=== PATIENT | male | born 1970 | race Hispanic/Latino ===

== ENCOUNTER 2018-06-13 14:05 | Inpatient (IN) | payer MEDICAID, OTHER ==
--- NOTE | 2018-06-13 15:24 | C.PDOC ---
History Of Present Illness Patient is a 47 year old male, with PMHx of depression, who presents to the ED requesting heroin detox. Patient notes associated nausea, vomiting, and abdomen discomfort. He states that he has used methadone in the past. Patient denies SI/HI, hallucinations, CP, SOB, falls, trauma, or any other medical complaints at the moment. Time Seen by Provider: 06/13/18 14:41 Chief Complaint (Nursing): Substance Abuse History Per: Patient History/Exam Limitations: no limitations Onset/Duration Of Symptoms: Hrs Current Symptoms Are (Timing): Still Present Modifying Factor(s): Other (Heroin ) Associated Symptoms: Depression Involuntary Hold By: None Recent travel outside of the [place]: No Additional History Per: Patient Past Medical History Reviewed: Historical Data, Nursing Documentation, Vital Signs Vital Signs: Last Vital Signs Temp 98.1 F 06/13/18 15:12 Pulse 71 06/13/18 15:12 Resp 18 06/13/18 15:12 BP 120/81 06/13/18 15:12 Pulse Ox 100 06/13/18 15:12 - Medical History PMH: Depression Surgical History: No Surg Hx Family History: States: Unknown Family Hx - Social History Hx Alcohol Use: No Hx Substance Use: Yes Review Of Systems Cardiovascular: Negative for: Chest Pain Respiratory: Negative for: Shortness of Breath Gastrointestinal: Positive for: Nausea, Vomiting, Other (abdomen discomfort ) Psych: Positive for: Depression. Negative for: Suicidal ideation, Other (homicidal ideation) Physical Exam - Physical Exam Appears: Non-toxic, No Acute Distress Skin: Normal Color, Warm, Dry Head: Atraumatic, Normacephalic Oral Mucosa: Moist Neck: Normal ROM, Supple Chest: Symmetrical Cardiovascular: Rhythm Regular Respiratory: Normal Breath Sounds, No Rales, No Rhonchi, No Wheezing Gastrointestinal/Abdominal: Soft, No Tenderness Neurological/Psych: Oriented x3 ED Course And Treatment - Laboratory Results Result Diagrams: 06/13/18 15:46 06/13/18 15:46 O2 Sat by Pulse Oximetry: 100 (on RA) Pulse Ox Interpretation: Normal Medical Decision Making Medical Decision Makin47 y/o male presents to ED for heroin detox with associated nausea, vomiting, and abdomen discomfort. Patient has no SI/HI, hallucinations, falls, trauma, or medical complaints at the moment. 4mg zofran odt given for nausea. 0.1mg clonidine po given for withdrawal symptoms. Patient medically cleared and admitted to detox. Disposition - Disposition Disposition: HOSPITALIZED Disposition Time: 14:41 Condition: STABLE - Clinical Impression Clinical Impression: Heroin abuse - Scribe Statement The provider has reviewed the documentation as recorded by the Scribe Provider Attestation: Sheyla Santiago All medical record entries made by the Scribe were at my direction and personally dictated by me. I have reviewed the chart and agree that the record accurately reflects my personal performance of the history, physical exam, medical decision making, and the department course for this patient. I have also personally directed, reviewed, and agree with the discharge instructions and disposition.
[2018-06-13 15:50] LABS: BASO # 0.1 K/uL (0.0-0.2); BASO % 0.7 % (0.0-2.0); EOS # 0.3 K/uL (0.0-0.7); HEMOGLOBIN 15.8 g/dL (12.0-18.0); LYMPH # 3.6 K/uL (1.0-4.3); LYMPH % 26.7 % (20.0-40.0); MEAN CELL VOLUME 91.9 fL (80.0-94.0); MEAN CORPUSCULAR HEMOGLOBIN 30.8 pg (27.0-31.0); MEAN CORPUSCULAR HGB CONC 33.6 g/dL (33.0-37.0); MEAN PLATELET VOLUME 7.4 fL (7.2-11.7); MONO # 0.9 K/uL (0.0-0.8); MONO % 6.7 % (0.0-10.0); NEUT # 8.6 K/uL (1.8-7.0); NEUT % 63.9 % (50.0-75.0); NRBC % 0.1 % (0.0-2.0); RBC 5.12 Mil/uL (4.40-5.90); RED CELL DISTRIBUTION WIDTH 15.4 % (11.5-14.5); WHITE BLOOD COUNT 13.4 K/uL (4.8-10.8)
[2018-06-13 16:06] LABS: ALB/GLOB RATIO 1.6 (1.0-2.1); ALBUMIN 4.9 g/dL (3.5-5.0); ALT/SGPT 33 U/L (21-72); AST/SGOT 22 U/L (17-59); BLOOD UREA NITROGEN 9 mg/dL (9-20); CALCIUM 9.6 mg/dl (8.6-10.4); GFR NON-AFRICAN AMERICAN > 60
[2018-06-13 16:09] LABS: BARBITURATES, UR NEGATIVE (NEGATIVE); BENZODIAZEPINES, UR NEGATIVE (NEGATIVE); PHENCYCLIDINE, UR NEGATIVE (NEGATIVE)
[2018-06-13 16:10] LABS: URINE BILIRUBIN NEGATIVE (NEGATIVE); URINE BLOOD NEGATIVE (NEGATIVE); URINE CLARITY Clear (Clear); URINE COLOR Yellow (YELLOW); URINE GLUCOSE (UA) NORMAL (Normal); URINE LEUKOCYTE ESTERASE NEG Leu/uL (Negative); URINE PROTEIN NEGATIVE (NEGATIVE); URINE UROBILINOGEN NORMAL mg/dL (0.2-1.0)
[2018-06-13 16:16] LABS: OPIATES, UR POSITIVE (NEGATIVE)
[2018-06-13] MEDS ORDERED: Aluminum Hydroxide/Magnesium Hydroxide Susp (30 mL) PO PRN (17:32)
--- NOTE | 2018-06-13 22:38 | PCM.BM ---
<Merlyn Karimi F - Last Filed: 06/13/18 22:36> Treatment Plan Problems - Problems identified on initial assessmt denial Date Initiated: 06/13/18 Time Initiated: 22:36 Assessment reference: NA Status: Active defensive coping Date Initiated: 06/13/18 Time Initiated: 22:37 Assessment reference: NA Status: Active low motivation to change Date Initiated: 06/13/18 Time Initiated: 22:37 Assessment reference: NA Status: Active Treatment assets and liabiliti Patient Assests: adapts well, cooperative, ADL independent, cognitively intact Patient Liabilities: substance abuse (Opiates) - Milieu Protocol Maintain good personal hygiene: daily Encourage regular showers, daily Remind patient to perform daily oral care, daily Assist patient to perform ADL's Conduct patient checks and document Observation sheet: Q15 minutes Maintain personal safety: every shift Educate patient to report safety concerns to staff, every shift Monitor environment for contraband/sharps Medication safety: Monitor for expected outcome, potential side effects: every shift, Assess barriers to learning: every shift, Assess readiness for medication education: every shift <David Traylor M - Last Filed: 06/14/18 22:21> - Diagnosis (1) Opioid use disorder, severe, dependence Status: Acute Interventions: 06/14/18 22:21 * Assess 7x/week regarding severity of withdrawal * Educate regarding risks, benefits, side effects and alternatives of medications * Use Motivational Interviewing for abstinence * Use CBT for relapse prevention * Medication management for withdrawal symptoms * Encourage medication assisted vanessa <Elma Garibay - Last Filed: 06/17/18 13:03> Family Contact Family involvement: No known Family/SO - Goals for Treatment Patient goals for treatment: Complete detox and discuss aftercare options with counseling staff. Discharge/Continuing Care - Education Needs Education Needs: Patient Medication, Patient Diagnosis/Disease Process, Patient Coping Skills, Patient Anger Management skills, Patient Placement options, Patient Community resources - Discharge Discharge Criteria: Free of agitation, No longer exhibiting s/s of withdrawal, Reduction of target symptoms Discharge to:: Other - Additional Comments 06/17/18 13:02 Pt. is undecided about aftercare as of this writing but counseling staff will continue to explore options with Pt. - Treatment Team Participation Patient/Family/SO Statement: 06/17/18 13:03 "Yeah...I don't know what I wanna do..." Discussed with Family/SO: No Was Patient/Family/SO present at Treatment Team Meeting: Yes
[2018-06-14] MEDS: buPROPion 150 mg/24 Hours XL Tab PO SCH (12:08)
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
[2018-06-15] MEDS: buPROPion 150 mg/24 Hours XL Tab PO SCH (09:04)
[2018-06-16] MEDS: buPROPion 150 mg/24 Hours XL Tab PO SCH (09:18)
--- NOTE | 2018-06-16 13:35 | PCM.PYCHPN ---
Psychiatric Progress Note - Psychiatric Progress Note Patient seen today, length of contact: 17 min Patient Chief Complaint: "I'm still sick" Problems Identified/Issues Discussed: The pt is seen, chart reviewed, case discussed with staff. The pt is compliant with medications and reports no side-effects. Symptoms are improving but needs more time to stabilize. He is STILL withdrawing and has pain, chills, irritability and anxiety. He got 10 yesterday and it did NOT hold him as per nurses and the pt Will give 10+5 today, 5+5 tomorrow and 5 on Sat and d/c Pt attends groups and activities. Support given, psycho-education provided. After care discussed. He may need to go to [facility] here but he says his insurance is not active and also he is not sure - he even used when he was on 130 mg He will consider LT rehab and maybe Vivitrol after that Medication Change: Yes (detox adjusted) Medical Record Reviewed: Yes Mental Status Examination - Cognitive Function Orientation: Person, Place, Situation, Time Memory: Intact Attention: WNL Concentration: Poor Association: WNL Fund of Knowledge: WNL - Mood Mood: Depressed - Affect Affect: Constricted, Depressed - Speech Speech: Appropriate - Formal Thought Process Formal Thought Process: No Impairment - Suicidal Ideation Suicidal Ideation: No - Homicidal Ideation Homicidal Ideation: No Goal/Treatment Plan - Goal/Treatment Plan Need for Continued Stay: Discharge may exacerbated symptoms, Severe functional impairment Progress Toward Problem(s) and Goals/Treatment Plan: Continue medications as needed meds Detox adjusted Support and psychoeducation daily Attend groups and activities daily [place] and CBT daily After care planning by
[2018-06-17] MEDS: buPROPion 150 mg/24 Hours XL Tab PO SCH (09:09)
--- NOTE | 2018-06-17 13:29 | PCM.PYCHPN ---
Psychiatric Progress Note - Psychiatric Progress Note Patient seen today, length of contact: 16 min Patient Chief Complaint: "I'm worse" Problems Identified/Issues Discussed: The pt is seen, chart reviewed, case discussed with staff. Support and psychoeducation given, CBT and PR used briefly He doesn't look bad but he claims he is worse and that he couldn't tolerate below 15 mg so far. he is now more seriously considering methadone main. vs vivitrol No SEs from medications, risks discussed. After care discussed Medication Change: Yes (detox adjusted) Medical Record Reviewed: Yes Mental Status Examination - Cognitive Function Orientation: Person, Place, Situation, Time Memory: Intact Attention: WNL Concentration: Poor Association: WNL Fund of Knowledge: WNL - Mood Mood: Depressed - Affect Affect: Constricted, Depressed - Speech Speech: Appropriate - Formal Thought Process Formal Thought Process: No Impairment - Suicidal Ideation Suicidal Ideation: No - Homicidal Ideation Homicidal Ideation: No Goal/Treatment Plan - Goal/Treatment Plan Need for Continued Stay: Discharge may exacerbated symptoms, Severe functional impairment Progress Toward Problem(s) and Goals/Treatment Plan: Continue medications as needed meds Detox adjusted Support and psychoeducation daily Attend groups and activities daily [place] and CBT daily After care planning by counselors
[2018-06-17] MEDS: guaiFENesin 200 mg/10 ml Syrup UD PO PRN ×2 (14:27→21:51)
[2018-06-18 05:50] VITALS: RESP 18
--- NOTE | 2018-06-18 08:46 | PCM.PYCHDC ---
Mental Status Examination - Mental Status Examination Orientation: Person, Place, Situation, Time Memory: Intact Mood: Anxious Affect: Constricted Speech: Appropriate Attention: WNL Concentration: Poor Association: WNL Fund of Knowledge: WNL Formal Thought Process: No Impairment Suicidal Ideation: No Current Homicidal Ideation?: No Discharge Summary - Discharge Note Reason for Hospitalization: Opioid detox Consultations:: List each consultation separately and include: 1. Reason for request. 2. Findings. 3. Follow-up Summary of Hospital Course include:: 1. Description of specific treatment plan utilized for patients during their course of treatmen. 2. Summarize the time- course for resolution of acute symptoms and/or regressed behaviors. 3. Describe issues identified and worked on during hospitalization. 4. Describe medication utilized. 5. Describe medical problems identified and treated. 6. Reassessment of suicide risk Summary of Hospital Course: The pt was admitted and started on treatment with psychotherapy, support, psychoeducation and medications. All the risks and benefits of medications are discussed and the patient understood and agreed. NC and CBT used. The pt attended groups and activities, as well as milieu therapy. The pt improved with the treatments provided. After care discussed with the patient. [facility] He first wanted "no meds after detox" and just rehab but then he admitted and realized that he would need methadone. He was at times angry and demanding. - Final Diagnosis (DSM 5) Condition upon Discharge: IMPROVED DSM 5: Opioid withdrawal opioid use d/o - severe Depressive d/o - unspecified Personality d/o - unspecified Disposition: HOME/ ROUTINE Follow-up Treatment Plan: Continue below medications after discharge. Follow after care plan as discussed. Use relapse prevention skills Return to ER or call 911 if suicidal, homicidal or symptoms relapse. Stay away from stress, alcohol and drugs. See primary doctor regularly and get labs. Prescriptions/Medication Reconciliation: buPROPion XL [Wellbutrin XL] 150 mg PO DAILY #30 t24 Citalopram [celEXA] 40 mg PO DAILY #30 tab Gabapentin [Neurontin] 400 mg PO TID #90 cap
[2018-06-18] MEDS: buPROPion 150 mg/24 Hours XL Tab PO SCH (09:21)
[2018-06-18 12:14] VITALS: BP 115/76; PULSE 66; TEMP 97.6; O2SAT 100
== END 2018-06-18 13:50 | disposition home or self-care (01) | DRG 773 ==
LOC: C.ER 14:05 → C.7D 16:54
PROC: GZ56ZZZ Individual Psychotherapy, Supportive (ICD-10-PCS; principal; 2018-06-13)
DX: F11.23 Opioid dependence with withdrawal (principal); F32.9 Major depressive disorder, single episode, unspecified; F41.9 Anxiety disorder, unspecified; F17.210 Nicotine dependence, cigarettes, uncomplicated